=== PATIENT | female | born 1985 | race Caucasian/White ===

== ENCOUNTER → 2016-11-30 | Outpatient (CLI) | payer BC | LOC: OD 14:08 | PROVIDERS: ATTEND Family Medicine | DX: M25.552 Pain in left hip (principal) ==

== ENCOUNTER 2018-07-05 18:36 | Inpatient (IN) | payer BC, MEDICAID ==
[2018-07-05 19:04] LABS: APPEARANCE,URINE SLIGHTLY-CLOUDY; BILIRUBIN,URINE NEGATIVE (NEGATIVE); COLOR,URINE YELLOW; GLUCOSE, URINE NEGATIVE (NEGATIVE); KETONES,URINE NEGATIVE (NEGATIVE); LEUKOCYTE ESTERASE,URINE NEGATIVE (NEGATIVE); NITRITE,URINE NEGATIVE (NEGATIVE); PROTEIN,URINE NEGATIVE (NEGATIVE); URINE SPECIFIC GRAVITY 1.016; UROBILINOGEN,URINE NEGATIVE mg/dL (<2.0)
[2018-07-05 19:24] LABS: ABSOLUTE LYMPHOCYTES (AUTO) 2.9 10^3/uL (0.5-4.7); ABSOLUTE MONOCYTES (AUTO) 0.5 10^3/uL (0.1-1.4); ABSOLUTE NEUT (AUTO) 8.7 10^3/uL (1.7-8.2); BASOPHILS % (AUTO) 0.4 % (0-2); EOSINOPHILS % (AUTO) 0.4 % (0-6); HEMATOCRIT 34.3 % (36.0-47.0); LYMPHOCYTES % (AUTO) 23.8 % (13-45); MEAN CORPUSCULAR HEMOGLOBIN 29.3 pg (27.0-33.4); MEAN CORPUSCULAR HGB CONC 35.1 g/dL (32.0-36.0); MEAN CORPUSCULAR VOLUME 84 fl (80-97); MONOCYTES % (AUTO) 4.5 % (3-13); PLATELET COUNT 249 10^3/uL (150-450); RED BLOOD COUNT 4.11 10^6/uL (3.72-5.28); RED CELL DISTRIBUTION WIDTH 13.6 % (11.5-14.0); SEGMENTED NEUTROPHILS % (AUTO) 70.9 % (42-78); TOTAL CELLS COUNTED % (AUTO) 100 %; WHITE BLOOD COUNT 12.2 10^3/uL (4.0-10.5)
[2018-07-05] MEDS ORDERED: RINGERS SOLUTION,LACTATED 300 ML IV ONE (19:33)
[2018-07-05] MEDS ORDERED: DINOPROSTONE 10 MG VAGINAL INSERT.SR PV ONE (19:33)
[2018-07-05] MEDS ORDERED: MAG HYDROX/AL HYDROX/SIMETH SUSP 30 ML UDCUP PO PRN (19:33)
[2018-07-05] MEDS ORDERED: ACETAMINOPHEN 325 MG TABLET PO PRN (19:33)
[2018-07-05 19:42] LABS: URINE AMPHETAMINES SCREEN NEGATIVE; URINE BARBITURATES SCREEN NEGATIVE; URINE BENZODIAZEPINES SCREEN NEGATIVE; URINE COCAINE SCREEN NEGATIVE; URINE MARIJUANA (THC) SCREEN NEGATIVE; URINE METHADONE SCREEN NEGATIVE; URINE PHENCYCLIDINE SCREEN NEGATIVE
[2018-07-05] MEDS: RINGERS SOLUTION,LACTATED 1,000 ML IV PRN (20:49)
[2018-07-05] MEDS ORDERED: DINOPROSTONE 10 MG VAGINAL INSERT.SR ONE (20:59)
[2018-07-05] MEDS ORDERED: ZOLPIDEM TARTRATE 5 MG TABLET ONE (22:56)
[2018-07-05] MEDS: ZOLPIDEM TARTRATE 5 MG TABLET PO PRN (23:06)
[2018-07-06] MEDS: RINGERS SOLUTION,LACTATED 1,000 ML IV PRN (02:43)
[2018-07-06] MEDS ORDERED: OXYTOCIN/NORMAL SALINE 20 UNIT/1,000 ML RTUINJ IV PRN (10:24)
[2018-07-06] MEDS ORDERED: MISOPROSTOL 0.2 MG TABLET ONE (10:38)
[2018-07-06] MEDS ORDERED: OXYTOCIN 10 UNIT/ML VIAL ONE (10:38)
[2018-07-06] MEDS ORDERED: OXYTOCIN/NORMAL SALINE 20 UNIT/1,000 ML RTUINJ ONE (10:39)
[2018-07-06] MEDS ORDERED: LIDOCAINE 1% INJ-PF (10 MG/ML) 30 ML SDV ONE (10:39)
[2018-07-06] MEDS ORDERED: ACETAMINOPHEN 325 MG TABLET ONE ×2 (12:19→21:34)
--- NOTE | 2018-07-06 16:55 | Admission Physical ---
Datetime Report Generated by CPN: 07/06/2018 16:55 CURRENT ADMISSION Chief Complaint Other: IUGR Indication for Induction: IUGR Admit Impression : Term, Intrauterine Admit Plan: Admit to Unit; Initiate Labor Induction Protocol ALLERGIES Medication Allergies: No Medication Allergies: No Known Allergies (07/05/2018) Latex: No Latex Allergies Food Allergies: NKA Environmental Allergies: NKA OBSTETRICAL HISTORY EDC: 07/19/2018 00:00 : 1 Para: 0 Term: 0 : 0 SAB: 0 IAB: 0 Ectopic: 0 Livin Cesareans: 0 VBACs: 0 Multiple Births: 0 Gestational Diabetes: No Rh Sensitization: No Incompetent Cervix: No BRUNA: No Infertility: No ART Treatment: No Uterine Anomaly: No IUGR: Yes Hx Previous C/S: No Macrosomia: No Hx Loss/Stillborn: No PIH: No Hx : No Placenta Previa/Abruption: No Depression/PP Depression: No PTL/PROM: No Post Hemorrhage: No Current Procedures: Ultrasound; NST; BPP Obstetrical History Comments: G-1 IUGR SEE RECORDS Alcohol: No Marijuana : No Cocaine: No Other Illicit Drugs: No Cigarettes: Never Smoker. [id number] MEDICAL HISTORY Diabetes: No Blood Transfusion: No Pulmonary Disease (Asthma, TB): No Breast Disease: Yes Hypertension: No Service Engine Repairer Surgery: No Heart Disease: No Hosp/Surgery: Yes Autoimmune Disorder: Yes Anesthetic Complications: No Kidney Disease: No Abnormal Pap Smear: Yes Neuro/Epilepsy: Yes Psychiatric Disorders: No Other Medical Diseases: Yes Hepatitis/Liver Disease: No Significant Family History: No Varicosities/Phlebitis: No Trauma/Violence : No Thyroid Dysfunction: Yes Medical History Comments: Pt with Sjogrens Syndrome on Plaquenil, followed by Research And Development Researcher Hypothyroid - Pt taking Synthroid qd Breast reduction in 2009 Surgery to left knee in 2004 and 2006 ACL replacement and meniscus repair Hx of epilepsy - last seizure when pt was 12 y/o Abnormal pap smear in Oct 2017, no f/u INFECTIOUS HISTORY Gonorrhea: No Genital Herpes: Yes Chlamydia: Yes Tuberculosis: No Syphilis: No Hepatitis: No HIV/AIDS Exposure: No Rash or Viral Illness: No HPV: Yes Infectious History Comments: Chlamydia 2016 - treated w/ antibiotics HPV diagnosed 2005 Genital Herpes 08/04/2017 - pt currently taking Valtrex PHYSICAL EXAM General: Normal HEENT: Normal Neurologic: Normal Thyroid: Normal Heart: Normal Lungs: Normal Breast: Deferred Back: Normal Abdomen: Normal Genitourinary Exam: Normal Extremities: Normal DTRs: Normal Pelvic Type: Adequate Vital Signs: Reviewed VAGINAL EXAM Dilatation: 1 Effacement: 50 Station: -2 MEMBRANES Pooling: Negative Membranes: Intact FETUS A Monitoring: External US FHR- Baseline: 130 Variability: Moderate 6-25bpm Decelerations: None FHR Category: Category I Presentation: Vertex Admit Comment: Plan induction. Hudson bulb placed to help with dilation. PLANS FOR LABOR AND DELIVERY Labor and Delivery: None Pain Management: Epidural Feeding Preference: Breast Benefit of Breast Feed Discussed: Yes Circumcision: Yes INFORMED CONSENT Signature: with User ID: [email or web address]
--- NOTE | 2018-07-06 19:45 | L&D Progress Notes ---
PROGRESS NOTES Datetime Report Generated by CPN: 07/06/2018 19:45 PROGRESS NOTE Impression Other: induction for iugr Vital Signs : Reviewed Comment: The balloon came out earlier but cervix still very firm. Will repeat cervadil tonight. VAGINAL EXAM Dilatation: 1 Effacement: 50 Station: -2 MEMBRANES Pooling: Negative Membranes: Intact FETUS A FHR - Baseline: 140 Variability: Moderate 6-25bpm Decelerations: None FHR Category: Category I : 38.0 Presentation: Vertex SIGNATURE SIGNATURE: ,[id number] SIGNATURE: [id number] Signature: with User ID: [email or web address]
[2018-07-06] MEDS ORDERED: DINOPROSTONE 10 MG VAGINAL INSERT.SR PV PRN (20:59)
[2018-07-06] MEDS ORDERED: ACETAMINOPHEN 325 MG TABLET PO ONE (21:38)
[2018-07-06] MEDS ORDERED: DINOPROSTONE 10 MG VAGINAL INSERT.SR ONE (21:47)
[2018-07-06] MEDS ORDERED: ZOLPIDEM TARTRATE 5 MG TABLET ONE (22:20)
[2018-07-06] MEDS: ZOLPIDEM TARTRATE 5 MG TABLET PO PRN (22:22)
[2018-07-07] MEDS: RINGERS SOLUTION,LACTATED 1,000 ML IV PRN ×2 (08:21→17:28)
[2018-07-07] MEDS ORDERED: OXYTOCIN/NORMAL SALINE 20 UNIT/1,000 ML RTUINJ ONE (11:46)
[2018-07-07] MEDS ORDERED: OXYTOCIN/NORMAL SALINE 20 UNIT/1,000 ML RTUINJ IV PRN ×3 (11:51→20:13)
--- NOTE | 2018-07-07 13:20 | L&D Progress Notes ---
PROGRESS NOTES Datetime Report Generated by CPN: 07/07/2018 13:19 PROGRESS NOTE Impression Other: Labor induction for gHTN Procedures: Artificial ROM; Sterile Vag Exam Plan Other: Pitocin Vital Signs : Reviewed; Within Normal Limits VAGINAL EXAM Dilatation: 3 Effacement: 25 Station: -2 Contractions: q 5-7 min MEMBRANES Membranes: Ruptured Amniotic Fluid Color: Clear FETUS A FHR - Baseline: 145 Monitoring: External US Variability: Moderate 6-25bpm Accelerations: 15X15 Decelerations: None FHR Category: Category I FETUS C SIGNATURE: [id number] Signature: with User ID: [email or web address]
[2018-07-07] MEDS ORDERED: BUPIVACAINE HCL 0.5 % INJ/PF 30 ML SDV ONE (14:16)
[2018-07-07] MEDS ORDERED: FENTANYL CITRATE INJ/PF 100 MCG/2 ML AMPUL ONE (14:16)
[2018-07-07] MEDS ORDERED: EPHEDRINE SULFATE INJ 50 MG/1 ML AMPULE ONE (14:16)
[2018-07-07] MEDS ORDERED: FENTANYL/BUPIVACAINE/NS/PF 300 MCG/150 ML RTUINJ EPI ONE (14:16)
[2018-07-07] MEDS ORDERED: ACETAMINOPHEN 325 MG TABLET ONE (17:25)
[2018-07-07] MEDS ORDERED: DIBUCAINE 1% OINTMENT 28 GM TP PRN (20:13)
[2018-07-07] MEDS ORDERED: BENZOCAINE/MENTHOL AEROSOL SPRAY 56 ML TOP PRN (20:13)
[2018-07-07] MEDS ORDERED: HYDROCODONE/ACETAMINOPHEN 5-325 MG TABLET PO PRN (20:13)
[2018-07-07] MEDS ORDERED: MEASLES,MUMPS&RUBELLA VACC/PF 0.5 ML VIAL SUBCUT PRN (20:13)
[2018-07-07] MEDS ORDERED: DIPH/PERTUSS(ACELL)/TETANUS VAC/PF 0.5 ML SYR (>=10YO) IM PRN (20:13)
[2018-07-07] MEDS ORDERED: ONDANSETRON HCL 8 MG TABLET PO PRN (20:15)
[2018-07-07] MEDS ORDERED: DIPHENHYDRAMINE HCL 25 MG CAPSULE PO PRN (20:15)
[2018-07-07] MEDS: IBUPROFEN 800 MG TABLET PO SCH (21:44)
[2018-07-07] MEDS ORDERED: IBUPROFEN 800 MG TABLET ONE (21:47)
[2018-07-07] MEDS ORDERED: FAMOTIDINE 20 MG TABLET PO PRN (22:00)
[2018-07-08] MEDS ORDERED: ACETAMINOPHEN 325 MG TABLET ONE (01:15)
[2018-07-08] MEDS: ACETAMINOPHEN 325 MG TABLET PO PRN ×2 (01:37→09:51)
[2018-07-08] MEDS: IBUPROFEN 800 MG TABLET PO SCH ×3 (05:15→22:15)
[2018-07-08] MEDS ORDERED: LEVOTHYROXINE SODIUM 0.05 MG TABLET ONE (05:16)
[2018-07-08] MEDS: LEVOTHYROXINE SODIUM 0.05 MG TABLET PO SCH (06:06)
[2018-07-08 06:48] LABS: HEMOGLOBIN 10.3 g/dL (12.0-15.5); MEAN CORPUSCULAR HEMOGLOBIN 29.8 pg (27.0-33.4); MEAN CORPUSCULAR HGB CONC 35.4 g/dL (32.0-36.0); MEAN CORPUSCULAR VOLUME 84 fl (80-97); PLATELET COUNT 172 10^3/uL (150-450); RED BLOOD COUNT 3.45 10^6/uL (3.72-5.28); RED CELL DISTRIBUTION WIDTH 14.1 % (11.5-14.0)
[2018-07-08] MEDS ORDERED: ACETAMINOPHEN 325 MG TABLET PO PRN (07:32)
[2018-07-08] MEDS: VALACYCLOVIR HCL 500 MG TABLET PO SCH (09:17)
[2018-07-08] MEDS: PRENATAL VITAMIN W DHA CAPSULE PO SCH ×2 (09:17→09:20)
[2018-07-08] MEDS: DOCUSATE SODIUM 100 MG CAPSULE PO SCH ×2 (09:19→17:44)
[2018-07-08] MEDS: SENNOSIDES/DOCUSATE 8.6-50 MG 1 EACH TABLET PO SCH (09:19)
[2018-07-08] MEDS: FERROUS SULFATE 325 MG TABLET PO SCH ×2 (09:19→17:44)
[2018-07-08] MEDS ORDERED: HYDROXYCHLOROQUINE SULFATE 200 MG TABLET PO SCH ×2 (10:00)
[2018-07-08] MEDS: HYDROXYCHLOROQUINE SULFATE 200 MG TABLET PO SCH ×2 (10:09→22:15)
--- NOTE | 2018-07-08 11:01 | PDOC PROGRESS REPORT ---
Subjective Progress Note for:: 07/08/18 Subjective:: Doing well today. Reason For Visit: ADMIT FOR INDUCTION OF LABOR Physical Exam - Physical Exam Vital Signs: Temp Pulse Resp BP Pulse Ox 98.2 F 65 16 115/62 98 07/08/18 07:19 07/08/18 07:19 07/08/18 07:19 07/08/18 07:19 07/08/18 07:19 Intake & Output 07/07/18 07/08/18 07/09/18 07:59 06:59 06:59 Intake Total 1240 Balance 1240 General appearance: PRESENT: no acute distress, well-developed, well-nourished Result Laboratory Results: 07/08/18 06:40 07/08/18 06:40 WBC 12.0 H RBC 3.45 L Hgb 10.3 L Hct 29.0 L MCV 84 MCH 29.8 MCHC 35.4 RDW 14.1 H Plt Count 172 Impressions: Post day one. Assessment & Plan - Diagnosis (1) Vaginal delivery Is this a current diagnosis for this admission?: Yes - Time Time Spent with patient: Less than 15 minutes Anticipated discharge: Home Within: within 48 hours - Plan Summary Plan Summary: Continue post care.
[2018-07-09] MEDS: IBUPROFEN 800 MG TABLET PO SCH ×2 (05:18→13:09)
[2018-07-09] MEDS: LEVOTHYROXINE SODIUM 0.05 MG TABLET PO SCH (05:18)
[2018-07-09] MEDS: DOCUSATE SODIUM 100 MG CAPSULE PO SCH ×2 (09:36→18:32)
[2018-07-09] MEDS: SENNOSIDES/DOCUSATE 8.6-50 MG 1 EACH TABLET PO SCH (09:36)
[2018-07-09] MEDS: HYDROXYCHLOROQUINE SULFATE 200 MG TABLET PO SCH (09:36)
[2018-07-09] MEDS: PRENATAL VITAMIN W DHA CAPSULE PO SCH ×2 (09:36→18:31)
[2018-07-09] MEDS: FERROUS SULFATE 325 MG TABLET PO SCH (09:36)
[2018-07-09] MEDS: VALACYCLOVIR HCL 500 MG TABLET PO SCH (09:36)
--- NOTE | 2018-07-09 10:02 | PDOC DISCHARGE SUMMARY ---
Final Diagnosis Discharge Date: 07/09/18 - Final Diagnosis (1) Vaginal delivery Is this a current diagnosis for this admission?: Yes Discharge Data - Discharge Medication Prescriptions: Ibuprofen [Motrin 800 mg Tablet] 800 mg PO Q8HP PRN #60 tablet PRN Reason: Home Medications: Hydroxychloroquine Sulfate [Plaquenil 200 mg Tablet] 200 mg PO DAILY 07/05/18 Ibuprofen [Motrin 800 mg Tablet] 800 mg PO Q8HP PRN #60 tablet 07/09/18 Levothyroxine Sodium [Synthroid 0.05 mg Tablet] 0.05 mg PO Q6AM tablet Vit/Dha [ Multi + Dha Capsule] 1 cap PO DAILY capsule Procedures: NST Intrapartum Procedure(s): Spontaneous Vaginal Delivery - Diagnosis Test Laboratory: Temp Pulse Resp BP Pulse Ox 98.1 F 70 16 112/69 99 07/09/18 09:33 07/09/18 09:33 07/09/18 09:33 07/09/18 09:33 07/09/18 09:33 07/05/18 07/05/18 07/08/18 18:54 19:05 06:40 RBC 4.11 3.45 L Hgb 12.0 10.3 L Hct 34.3 L 29.0 L Urine Opiates Screen NEGATIVE - Discharge information/Instructions Discharge Activity: Balance Activity w/Rest, Pelvic Rest Discharge Diet: Regular Disposition: HOME, SELF-CARE Follow up with: [facility] in: 4, Weeks
[2018-07-09] MEDS: ACETAMINOPHEN 325 MG TABLET PO PRN (13:10)
[2018-07-09 14:41] VITALS: BP 110/68
--- NOTE | 2018-07-18 13:56 | Delivery Summary ---
Del Sum A-C Datetime Report Generated by CPN: 07/18/2018 13:56 DELIVERY PERSONNEL DELIVERY PERSONNEL: [id number] Delivery Doctor:: Josse Montesinos MD Labor and Delivery Nurse:: Mali Huang RNerector operator Nurse:: Andreia Bennett RN Nursery Nurse:: Nancy Echevarria RN Leasing Machine Tender/SHIPWRIGHT HELPER: Maddie Burrows, HOSE TENDER MATERNAL INFORMATION Delivery Anesthesia: Local; Epidural Medications After Delivery: Pitocin Drip 20 Units/1000ml NSS Meds After Delivery Comment: Pitocin 20 units/1000 mL NS Estimated Blood Loss (ml): 50 Maternal Complications: None Provider Comments: Pt C_P. Head delivered OA. Anterior and posterior shoulder delivered followed by rest of body. Baby placed on mom's abdomen. After 1min, cord clamped x 2 and cut by FOB. Cord blood collected. Placenta delivered intact with 3VC. LABOR SUMMARY EDC: 07/19/2018 00:00 No. Babies in Womb: 1 Attempted: No Labor Anesthesia: Epidural LABOR INFORMATION Reason for Induction: Intrauterine Growth Retardation Onset of Labor: 07/07/2018 18:26 Complete Dilatation: 07/07/2018 19:24 Cervical Ripening Agents: Cervidil Cervical Ripening Agents: Hudson Balloon Cervical Ripening Agents: Hudson Balloon Cervical Ripening Agents: Cervidil (Annotations: removed by patient) Cervical Ripening Agents: Cervidil Other Ripening Agents: cervidil removed. Oxytocin: Induction Group B Beta Strep: Negative Antibiotics # of Doses: 0 Antibiotics Time of Last Dose: n/a Name of Antibiotic Given: n/a Steroids Given: None Reason Steroids Not Administered: Not Applicable MEMBRANES Membranes Rupture Method: Artificial Rupture of Membranes: 07/07/2018 11:41 Length of Rupture (hr): 8.10 Amniotic Fluid Color: Clear Amniotic Fluid Amount: Moderate Amniotic Fluid Odor: Normal STAGES OF LABOR Stage 1 hr: 0 Stage 1 min: 58 Stage 2 hr: 0 Stage 2 min: 23 Stage 3 hr: 0 Stage 3 min: 7 Total Time in Labor hr: 1 Total Time in Labor min: 28 VAGINAL DELIVERY Episiotomy: None Other Laceration: Bilateral labial Laceration Repair Note: Lacerations repaired with 3.0 Vicryl in interrupted fashion. Sponge Count Correct: N/A Sharps Count Correct: N/A CSECTION DELIVERY Primary Indication: N/A Secondary Indication: N/A CSection Incidence: N/A Labor: N/A Elective: N/A CSection Incision: N/A BABY A INFORMATION Infant Delivery Date/Time: 07/07/2018 19:47 Method of Delivery: Vaginal Born in Route : No : N/A Forceps: N/A Vacuum Extraction: N/A Shoulder Dystocia : No PRESENTATION/POSITION BABY A Presentation: Cephalic Cephalic Presentation: Vertex Vertex Position: occipital anterior Breech Presentation: N/A PLACENTA INFORMATION BABY A Placenta Delivery Time : 07/07/2018 19:54 Placenta Method of Delivery: Spontaneous Placenta Status: Delivered SCORES BABY A Heart Rate 1 min: >100 bpm Resp Effort 1 min: Slow, Irregular Reflex Irritability 1 min: Cough or Sneeze or Pulls Away Muscle Tone 1 min: Active Motion Color 1 min: Body [place], Extremities Blue SCORE 1 MIN: 8 Heart Rate 5 min: >100 bpm Resp Effort 5 min: Good Cry Reflex Irritability 5 min: Cough or Sneeze or Pulls Away Muscle Tone 5 min: Active Motion Color 5 min: Body [place], Extremities Blue SCORE 5 MIN: 9 INFANT INFORMATION BABY A Gestational Age at Delivery: 38.2 Gestational Status: Early Term- 37- 38.6 Weeks Outcome : Liveborn Infant Condition : Stable Infant Sex: Male IDENTIFICATION BABY A Verification Date/Time: 07/07/2018 19:55 ID Band Number: [id number] Mother's Name Verified: Yes RN Verifying : James RN Additional Verifying Personnel: [facility] RN WEIGHT/LENGTH BABY A Birthweight (gm): 2540 Weight (lb): 5 Infant Weight (oz): 10 Length (in): 19.00 Infant Length (cm): 48.26 CORD INFORMATION BABY A No. Cord Vessels: 3 Nuchal Cord : N/A Cord Blood Taken: Yes-For Eval (Mom's Blood Type - or O+) Suction: Mouth; Nose ASSESSMENT BABY A Infant Complications: Multiple Late Decels; Multiple Variable Decels Physical Findings at Delivery: Within Normal Limits Physical Findings- Other: initial assessment to be performed by nursery nurse who is at bedside Infant Respirations: Appears Normal Skin to Skin: Yes Master Scheduler/ALS Called : No Care By: Macey Echevarria RN Transferred To: Remains with Mother BABY B INFORMATION : N/A SIGNATURES Signature: with User ID: [email or web address] : I was personally available for consultation and serving as supervising physician for the MLP.
== END 2018-07-09 20:33 | disposition home or self-care (01) | DRG 806 ==
LOC: LR 18:36 → 2S 07-07 22:29
PROVIDERS: ADMIT Obstetrics & Gynecology; ATTEND Obstetrics & Gynecology
PROC: 10E0XZZ Delivery of Products of Conception, External Approach (ICD-10-PCS; principal; 2018-07-07)
PROC: 0UQMXZZ Repair Vulva, External Approach (ICD-10-PCS; 2018-07-07)
PROC: 3E0234Z Introduction of Serum, Toxoid and Vaccine into Muscle, Percutaneous Approach (ICD-10-PCS; 2018-07-09)
DX: O36.5930 Maternal care for other known or suspected poor fetal growth, third trimester, not applicable or unspecified (principal); O99.354 Diseases of the nervous system complicating childbirth; Z37.0 Single live birth; O98.52 Other viral diseases complicating childbirth; B00.9 Herpesviral infection, unspecified; O70.0 First degree perineal laceration during delivery; O76 Abnormality in fetal heart rate and rhythm complicating labor and delivery; O75.89 Other specified complications of labor and delivery; M35.00 Sjogren syndrome, unspecified; O99.284 Endocrine, nutritional and metabolic diseases complicating childbirth; E03.9 Hypothyroidism, unspecified; G40.909 Epilepsy, unspecified, not intractable, without status epilepticus; Z3A.38 38 weeks gestation of pregnancy; Z23 Encounter for immunization
CPT/HCPCS: 36415; 80307; 81005; 85025; 85027; 86592; 86850; 86900; 86901; 88307; 90471; 90686; 94760; C1726; G0008; J2590; J3010; J3490